=== PATIENT | female | born 1995 | race African-American/Black ===

== ENCOUNTER 2018-07-14 05:37 | Inpatient (IN) ==
[2018-07-14] MEDS ORDERED: FAMOTIDINE 20 MG/2 ML VIAL IV ONE (06:00)
[2018-07-14] MEDS ORDERED: CITRIC ACID/SODIUM CITRATE 30 ML UDCUP PO ONE (06:00)
[2018-07-14] MEDS ORDERED: ceFAZolin 3,000 MG in SYRINGE 1 EACH IV ONE (06:00)
[2018-07-14] MEDS: LACTATED RINGERS 1,000 ML IV SCH ×2 (06:10→06:50)
[2018-07-14 06:15] LABS: Basophils % 0.2 % (0.0-0.8); Eosinophils % 0.2 % (0.00-10.9); Hematocrit 32.2 VOL% (35.7-47.0); Hemoglobin 10.5 GM/DL (12.0-16.0); Immature Granulocytes % 0.6 %; Immature Granulocytes Absolute 0.09 #; Lymphocytes # 2.7 10*3/uL (1.4-4.0); Lymphocytes % 17.8 % (21.3-54.2); Mean Corpuscular HGB Conc 32.6 GM/DL (32-36); Mean Corpuscular Hemoglobin 28 PG (27-34); Mean Corpuscular Volume 84.7 FL (87-102); Mean Platelet Volume 11.2 FL (9.6-12.0); Monocytes # 0.9 10*3/uL (0.11-0.8); Monocytes % 5.7 % (1.7-12.7); Neutrophils # 11.5 10*3/uL (1.4-7.4); Neutrophils % 75.5 % (38.7-73.9); Platelet Count 242 T/CUMM (130-400); Red Cell Distribution Width 14.2 % (9.3-17.3); White Blood Count 15.2 T/CUMM (4-12)
[2018-07-14] MEDS ORDERED: BUPIVACAINE SPINAL 0.75% 2 ML AMP SPINAL ONE (06:31)
[2018-07-14 06:34] LABS: Albumin 2.9 G/DL (3.4-5.0); Bilirubin,Total 0.4 MG/DL (0.2-1.0); Calcium 8.3 MG/DL (8.5-10.1); Osmolality,Calculated 271.7 MOS/KG (273-304); Potassium 3.3 MMOL/L (3.5-5.1); Total Protein 7.3 G/DL (6.4-8.3)
[2018-07-14] MEDS ORDERED: SODIUM CHLORIDE 0.9% 100 ML IV ONE (07:10)
[2018-07-14] MEDS ORDERED: OXYTOCIN/LR 20 UNIT/1,000 ML BAG IV ONE ×3 (07:10→10:07)
[2018-07-14 10:01] LABS: Cord Venous Blood HCO3 24.6 MMOL/L; Cord Venous Blood PCO2 40.2 MMHG; Cord Venous Blood PO2 44.2 MMHG
[2018-07-14 10:06] LABS: Apearance,Urine CLEAR (Clear); Bilirubin,Urine Negative (Negative); Blood, Urine Negative (Negative); Glucose,Urine (UA) Negative (Negative); Ketones,Urine Negative (Negative); Mucus,Urine Occasional /LPF (Occasional); Nitrite,Urine Negative (Negative); Protein,Urine Negative; RBC,Urine <1 /HPF (0-4); Squamous Epithelial Cell,Urine Occasional /HPF (0-10); Urine Color Yellow (Yellow); Urine Specific Gravity 1.012 (1.001-1.035); WBC,Urine 2 /HPF (0-6)
[2018-07-14] MEDS ORDERED: ONDANSETRON 4 MG/2 ML VIAL IV PRN ×2 (10:07→12:00)
[2018-07-14] MEDS ORDERED: BISACODYL 10 MG SUPP RECTAL PRN (10:07)
[2018-07-14] MEDS ORDERED: BENZOCAINE 20%/MENTHOL 0.5% SPRAY 56 GM CAN TOP PRN (10:07)
[2018-07-14] MEDS ORDERED: oxyCODONE/ACETAMINOPHEN 5-325 MG TABLET PO PRN (10:07)
[2018-07-14] MEDS ORDERED: HYDROCORTISONE 2.5% RECTAL CREAM 30 GM TUBE TOP PRN (10:07)
[2018-07-14] MEDS ORDERED: ACETAMINOPHEN 325 MG TABLET PO PRN (10:07)
[2018-07-14] MEDS ORDERED: WITCH HAZEL PADS 100/JAR TOP PRN (10:07)
[2018-07-14] MEDS ORDERED: LANOLIN 50% CREAM 0.3 OZ TUBE TOP PRN (10:07)
[2018-07-14] MEDS ORDERED: DIPH/TET/ACEL PERT BOOSTER VACCINE 0.5 ML VIAL IM ONE (10:30)
[2018-07-14] MEDS ORDERED: RHO(D) IMMUNE GLOBULIN 300 MCG SYRINGE IM ONE (10:30)
[2018-07-14] MEDS ORDERED: MEASLES/MUMPS/RUBELLA VACCINE 0.5 ML VIAL SUBCUT ONE (10:30)
[2018-07-14] MEDS ORDERED: diphenhydrAMINE 50 MG/1 ML VIAL IV PRN (12:00)
[2018-07-14] MEDS ORDERED: hydrOXYzine HCL 25 MG/1 ML VIAL IM PRN (12:00)
[2018-07-14] MEDS: HYDROmorphone 2 MG/1 ML VIAL IV PRN ×2 (12:10→18:33)
[2018-07-14] MEDS ORDERED: PROPOFOL 200 MG/20 ML VIAL IV ONE (13:39)
[2018-07-14] MEDS ORDERED: PHENYLEPHRINE 1 MG/10 ML SYRINGE IV ONE (13:40)
[2018-07-14] MEDS ORDERED: MORPHINE 10 MG/10 ML VIAL ONE (13:40)
[2018-07-14] MEDS ORDERED: ePHEDrine 50 MG/ML AMP ONE (13:40)
[2018-07-14] MEDS ORDERED: ONDANSETRON 4 MG/2 ML VIAL ONE (13:40)
[2018-07-14] MEDS: ceFAZolin 1,000 MG in SYRINGE 1 EACH IV SCH (18:29)
[2018-07-14] MEDS: DOCUSATE SODIUM 100 MG CAPSULE PO SCH (23:06)
[2018-07-15] MEDS: ceFAZolin 1,000 MG in SYRINGE 1 EACH IV SCH (00:49)
[2018-07-15] MEDS: oxyCODONE/ACETAMINOPHEN 5-325 MG TABLET PO PRN ×2 (00:55→17:17)
[2018-07-15 03:53] LABS: Basophils % 0.2 % (0.0-0.8); Eosinophils % 0.1 % (0.00-10.9); Hematocrit 24.8 VOL% (35.7-47.0); Hemoglobin 7.9 GM/DL (12.0-16.0); Immature Granulocytes % 0.5 %; Immature Granulocytes Absolute 0.08 #; Lymphocytes # 2.1 10*3/uL (1.4-4.0); Mean Corpuscular HGB Conc 31.9 GM/DL (32-36); Mean Corpuscular Hemoglobin 27 PG (27-34); Mean Corpuscular Volume 86.1 FL (87-102); Mean Platelet Volume 12.5 FL (9.6-12.0); Monocytes # 0.9 10*3/uL (0.11-0.8); Monocytes % 5.4 % (1.7-12.7); Neutrophils # 12.8 10*3/uL (1.4-7.4); Neutrophils % 80.8 % (38.7-73.9); Platelet Count 201 T/CUMM (130-400); Red Blood Count 2.88 MC/CUMM (3.8-5.5); Red Cell Distribution Width 14.1 % (9.3-17.3); White Blood Count 15.9 T/CUMM (4-12)
[2018-07-15] MEDS: IBUPROFEN 800 MG TABLET PO PRN ×2 (06:56→17:16)
[2018-07-15] MEDS: MAGNESIUM HYDROXIDE SUSP 30 ML UDCUP PO PRN ×2 (08:55→20:53)
[2018-07-15] MEDS: DOCUSATE SODIUM 100 MG CAPSULE PO SCH ×2 (08:55→20:53)
[2018-07-15] MEDS: SIMETHICONE CHEW 80 MG TABLET PO PRN (08:56)
[2018-07-15] MEDS: FERROUS SULFATE 325 MG TABLET PO SCH (20:53)
[2018-07-16] MEDS: oxyCODONE/ACETAMINOPHEN 5-325 MG TABLET PO PRN ×2 (02:32→08:12)
[2018-07-16 07:26] VITALS: BP 110/63
[2018-07-16] MEDS: IBUPROFEN 800 MG TABLET PO PRN (08:12)
[2018-07-16] MEDS: FERROUS SULFATE 325 MG TABLET PO SCH (09:09)
[2018-07-16] MEDS: SIMETHICONE CHEW 80 MG TABLET PO PRN (09:09)
[2018-07-16] MEDS: MAGNESIUM HYDROXIDE SUSP 30 ML UDCUP PO PRN (09:09)
[2018-07-16] MEDS: DOCUSATE SODIUM 100 MG CAPSULE PO SCH (11:57)
== END 2018-07-16 12:00 | disposition home or self-care (01) | DRG 540 ==
LOC: N.LDOUT 05:37 → N.LD 05:41 → N.OB 13:52
PROVIDERS: ADMIT Specialist; ATTEND Specialist
PROC: LDCSECT (ICD-10-PCS; 2018-07-14 07:30)